=== PATIENT | female | born 1995 | race Caucasian/White ===

== ENCOUNTER → 2017-10-01 | Outpatient (CLI) | payer OTHER ==
--- NOTE | 2017-10-01 15:16 | DIAGNOSTIC IMAGING REPORT ---
CHEST 2 VIEWS ROUTINE CLINICAL HISTORY: R06.02 Shortness of xseffwU79.9 Allergic [id number] AsthmaR dyspnea COMPARISON STUDY: No previous studies for comparison. FINDINGS: The bones soft tissues and hemidiaphragms are normal. The cardiomediastinal silhouette is normal. The lungs are clear. The pulmonary vasculature is normal. IMPRESSION: Negative chest. The above report was generated using voice recognition software. It may contain grammatical, syntax or spelling errors. Electronically signed by: Reji Morelos M.D. 10/01/2017 3:14 PM Dictated Date/Time: 10/01/2017 3:14 PM
== END | disposition home or self-care (01) ==
LOC: C.RAD1850 15:01
PROVIDERS: ATTEND Physician Assistant
DX: J30.9 Allergic rhinitis, unspecified (principal); J45.909 Unspecified asthma, uncomplicated; R06.02 Shortness of breath

== ENCOUNTER → 2017-10-21 | Outpatient (CLI) | payer OTHER ==
--- NOTE | 2017-10-22 07:58 | PULMONARY FUNCTION TEST ---
Reading is based off of ATS criteria. SPIROMETRY: Within normal limits. BRONCHODILATOR: Borderline significant response based off FEV1 standards. LUNG VOLUMES: Within normal limits. DIFFUSION CAPACITY: Mildly reduced at 76% but corrects off alveolar volume to 117%. INTERPRETATION: Normal spirometry/pulmonary function study. MTDD
== END | disposition home or self-care (01) ==
LOC: C.RC 12:09
PROVIDERS: ATTEND Physician Assistant
DX: J30.9 Allergic rhinitis, unspecified (principal); J45.909 Unspecified asthma, uncomplicated; R06.02 Shortness of breath